=== PATIENT | male | born 1985 ===

== ENCOUNTER → 2021-03-23 | Outpatient (CLI) | payer SELFPAY ==
[2021-03-25 14:02] LABS: CHLAMYDIA TRACHOMATIS, NAA Positive (Negative)
== END | disposition home or self-care (01) ==
LOC: LAB SHORT 10:45 → PLD 10:45
PROVIDERS: Internal Medicine
DX: N34.1 Nonspecific urethritis (principal)
CPT/HCPCS: 87070; 87077; 87185; 87205; 87491; 87591